=== PATIENT | female | born 1940 | race Caucasian/White ===

== ENCOUNTER 2019-02-01 09:32 | Day surgery (SDC) | payer OTHER, BC ==
[2019-02-01 10:02] VITALS: BMI 22.6
[2019-02-01] MEDS ORDERED: PROPOFOL 20 ML ONE (10:55)
[2019-02-01 11:31] VITALS: TEMP 98
[2019-02-01 11:41] VITALS: BP 126/69; PULSE 80
== END 2019-02-01 11:48 | disposition home or self-care (01) ==
LOC: FASU-ENDO 09:32
PROVIDERS: ATTEND Internal Medicine Gastroenterology
PROC: 0DJD8ZZ Inspection of Lower Intestinal Tract, Via Natural or Artificial Opening Endoscopic (ICD-10-PCS; principal; 2019-02-01 10:46)
DX: Z86.010 Personal history of colon polyps (principal); Z80.0 Family history of malignant neoplasm of digestive organs; Z83.71 Family history of colonic polyps; K57.30 Diverticulosis of large intestine without perforation or abscess without bleeding; K64.8 Other hemorrhoids

== ENCOUNTER 2024-01-01 07:52 | Day surgery (SDC) | payer OTHER, BC ==
[2023-12-25 12:48] VITALS: BMI 21.9
[2024-01-01 09:56] VITALS: TEMP 97
[2024-01-01 09:57] VITALS: RESP 18
[2024-01-01 09:58] VITALS: BP 128/68; PULSE 67
== END 2024-01-01 10:11 | disposition home or self-care (01) ==
LOC: FASU-ENDO 07:52
PROVIDERS: ATTEND Internal Medicine Gastroenterology
PROC: 0DJD8ZZ Inspection of Lower Intestinal Tract, Via Natural or Artificial Opening Endoscopic (ICD-10-PCS; principal; 2024-01-01 09:13)
DX: Z12.11 Encounter for screening for malignant neoplasm of colon (principal); K57.30 Diverticulosis of large intestine without perforation or abscess without bleeding; K64.0 First degree hemorrhoids; Z86.010 Personal history of colon polyps; Z80.0 Family history of malignant neoplasm of digestive organs; Z83.719 Family history of colon polyps, unspecified